=== PATIENT | male | born 1985 | race Two or more races ===

== ENCOUNTER 2017-11-17 02:25 | Emergency (ER) | payer SELFPAY ==
--- NOTE | 2017-11-17 02:43 | EDPHY ---
H & P Stated Complaint: RIGHT UPPER ABD PAIN, RAD TO MID BACK, SMALL BUMP ON ABD Time Seen by Provider: 11/17/17 02:37 HPI/ROS: CHIEF COMPLAINT: Right upper quadrant abdominal pain x2 days HISTORY OF PRESENT ILLNESS: 32-year-old male generally healthy complaining of waxing waning right upper quadrant abdominal pain worse postprandially, worse this evening. Last oral intake was grapes at midnight tonight. Positive nausea. No vomiting. No history of similar. No history of abdominal surgeries. Bowel movements normal. No fever or chills. No trauma. No urinary abnormality. No testicular abnormality. REVIEW OF SYSTEMS: A ten point review of systems was performed and is negative with the exception of the items mentioned in the HPI PAST MEDICAL & SURGICAL HISTORY: No pertinent medical or surgical history SOCIAL HISTORY: No alcohol or drug use PHYSICAL EXAM (Prior to examination, patient consented to physical exam, hands were washed and my usual and customary physical exam procedures followed) 1) GENERAL: Well-developed, well-nourished, alert and oriented. Appears to be in no acute distress. 2) HEAD: Normocephalic, atraumatic 3) HEENT: Pupils equal, round, reactive to light bilaterally. Sclera anicteric. Nasopharynx, oropharynx, clear, no lesions. Ears bilaterally with normal tympanic membranes. 4) NECK: Full range of motion, no meningeal signs. 5) LUNGS: Clear auscultation bilaterally, no wheezes, no rhonchi, no retractions. 6) HEART: Regular rate and rhythm, no murmur, no heave, no gallop. 7) ABDOMEN: tender to palpation right upper quadrant positive Solomon sign negative McBurney's, negative Rovsing's, negative peritoneal sign, 8) MUSCULOSKELETAL: Moving all extremities, no focal areas of tenderness, no obvious trauma. No peripheral edema or discoloration. 9) BACK: No CVA tenderness, no midline vertebral tenderness, no fluctuance, no step-off, no obvious trauma, no visual or palpable abnormality. 10) SKIN: No rash, no petechiae. 11) Psychiatric: Patient is oriented X 3, there is no agitation. DIFFERENTIAL DIAGNOSIS: In no particular order, including but not limited to biliary colic, cholecystitis, peptic ulcer disease, pancreatitis, and gastroenteritis. This is a partial list of diagnoses considered. These considerations are based on history, physical exam, past history and reassessment. - Personal History Current Tetanus/Diphtheria Vaccine: Yes - Medical/Surgical History Hx Asthma: Yes Hx Chronic Respiratory Disease: No Hx Diabetes: No Hx Cardiac Disease: No Hx Renal Disease: No Hx Cirrhosis: No Hx Alcoholism: No Hx HIV/AIDS: No Hx Splenectomy or Spleen Trauma: No Other PMH: SPORTS ASTHMA - Social History Smoking Status: Never smoked Constitutional: Initial Vital Signs Temperature (C) 36.4 C 11/17/17 02:29 Heart Rate 71 11/17/17 02:29 Respiratory Rate 18 11/17/17 02:29 Blood Pressure 129/84 H 11/17/17 02:29 O2 Sat (%) 97 11/17/17 02:29 O2 Delivery Mode Room Air Allergies/Adverse Reactions: No Known Allergies Allergy (Unverified 11/17/17 02:28) Home Medications: Medication Instructions Recorded Pantoprazole Sodium [Protonix 40mg 40 mg PO DAILY #30 tab 11/17/17 (RX)] Medical Decision Making ED Course/Re-evaluation: 4:00 a.m.: Discussed with the patient is negative ultrasound no evidence of acute cholecystitis. Patient was re-evaluated at this time, states that he is feeling improvement without further intervention. We discussed possible etiologies for symptoms including, but not limited to, gastritis, peptic ulcer disease. At this time I do not think that further diagnostic studies are indicated. He has been given GI cocktail, started on proton pump inhibitor, usual and customary dietary instructions and lifestyle instructions discussed with patient. I recommend follow up with Gastroenterology and have given him this follow-up information. Care of patient under supervision of secondary supervising physician Dr Multani . - Data Points Laboratory Results: Laboratory Results 11/17/17 02:39 11/17/17 02:39 11/17/17 11/17/17 02:39 02:39 WBC 7.39 10^3/uL 10^3/uL (3.80-9.50) RBC 4.84 10^6/uL 10^6/uL (4.40-6.38) Hgb 14.8 g/dL g/dL (13.7-17.5) Hct 41.0 % % (40.0-51.0) MCV 84.7 fL fL (81.5-99.8) MCH 30.6 pg pg (27.9-34.1) MCHC 36.1 g/dL g/dL (32.4-36.7) RDW 11.8 % % (11.5-15.2) Plt Count 238 10^3/uL 10^3/uL (150-400) MPV 8.1 fL L fL (8.7-11.7) Neut % (Auto) 56.0 % % (39.3-74.2) Lymph % (Auto) 32.6 % % (15.0-45.0) Bullock % (Auto) 8.8 % % (4.5-13.0) Eos % (Auto) 1.5 % % (0.6-7.6) Baso % (Auto) 0.4 % % (0.3-1.7) Nucleat RBC Rel Count 0.0 % % (0.0-0.2) Absolute Neuts (auto) 4.14 10^3/uL 10^3/uL (1.70-6.50) Absolute Lymphs (auto) 2.41 10^3/uL 10^3/uL (1.00-3.00) Absolute Monos (auto) 0.65 10^3/uL 10^3/uL (0.30-0.80) Absolute Eos (auto) 0.11 10^3/uL 10^3/uL (0.03-0.40) Absolute Basos (auto) 0.03 10^3/uL 10^3/uL (0.02-0.10) Absolute Nucleated RBC 0.00 10^3/uL 10^3/uL (0-0.01) Immature Gran % 0.7 % % (0.0-1.1) Immature Gran # 0.05 10^3/uL 10^3/uL (0.00-0.10) Sodium 143 mEq/L mEq/L (134-144) Potassium 4.0 mEq/L mEq/L (3.5-5.2) Chloride 109 mEq/L mEq/L (97-110) Carbon Dioxide 19 mEq/l L mEq/l (22-31) Anion Gap 15 mEq/L mEq/L (8-16) BUN 18 mg/dL mg/dL (7-23) Creatinine 0.9 mg/dL mg/dL (0.7-1.3) Estimated GFR > 60 Glucose 114 mg/dL H mg/dL (70-100) Calcium 9.4 mg/dL mg/dL (8.5-10.4) Total Bilirubin 0.4 mg/dL mg/dL (0.1-1.4) Conjugated Bilirubin 0.3 mg/dL mg/dL (0.0-0.5) Unconjugated Bilirubin 0.1 mg/dL mg/dL (0.0-1.1) AST 37 IU/L IU/L (17-59) ALT 71 IU/L IU/L (21-72) Alkaline Phosphatase 109 IU/L IU/L (38-126) Total Protein 7.0 g/dL g/dL (6.3-8.2) Albumin 4.1 g/dL g/dL (3.5-5.0) Lipase 109 IU/L IU/L (23-300) Medications Given: Discontinued Medications Sodium Chloride (Ns) 1,000 mls @ 0 mls/hr IV ONCE ONE PRN Reason: Wide Open Stop: 11/17/17 03:03 Last Admin: 11/17/17 03:06 Dose: 1,000 mls Ondansetron HCl (Zofran) 4 mg IVP EDNOW ONE Stop: 11/17/17 03:03 Last Admin: 11/17/17 03:06 Dose: 4 mg Departure - Departure Disposition: Home, Routine, Self-Care Clinical Impression: Abdominal pain Qualifiers: Abdominal location: right upper quadrant Qualified Code(s): R10.11 - Right upper quadrant pain Condition: Good Instructions: Acute Abdominal Pain (ED) Additional Instructions: Seek immediate medical attention if you develop new or worsening symptoms, if you develop fevers, chills, inability to tolerate oral intake or any other symptoms that concerns you. Referrals: Vito Nuno MD [Medical Doctor] - 5-7 days, call for appt. Prescriptions: Pantoprazole Sodium [Protonix 40mg (RX)] 40 mg PO DAILY #30 tab
[2017-11-17 02:54] LABS: PLATELET COUNT 238 10^3/uL (150-400)
[2017-11-17] MEDS ORDERED: NS 1,000 ML IV ONE (03:02)
[2017-11-17] MEDS ORDERED: ONDANSETRON 4 MG/2 ML VIAL IVP ONE (03:02)
[2017-11-17] MEDS ORDERED: LIDOCAINE 2% VISCOUS 15 ML UDCUP PO ONE (04:07)
[2017-11-17] MEDS ORDERED: MAG HYDROX/AL HYDROX/SIMETH 30 ML UDCUP PO ONE (04:07)
[2017-11-17] MEDS ORDERED: HYOSCYAMINE SULFATE 0.125 MG TAB PO ONE (04:07)
[2017-11-17 04:18] VITALS: BP 122/81; PULSE 74; RESP 16; TEMP 98.4; O2SAT 96
== END 2017-11-17 04:22 | disposition home or self-care (01) ==
DX: R10.11 Right upper quadrant pain (principal); J45.909 Unspecified asthma, uncomplicated
CPT/HCPCS: 96374; J2405